=== PATIENT | male | born 1975 | race Two or more races ===

== ENCOUNTER 2018-06-21 19:09 | Emergency (ER) | payer OTHER ==
[~2018-06-21] VITALS: Ht 182.9 cm; Wt 90.7 kg
[2018-06-21 21:18] VITALS: BP 135/80
[2018-06-21] MEDS ORDERED: IBUPROFEN 800 MG TAB PO ONE (21:30)
== END 2018-06-21 21:33 ==
LOC: ER 19:09 → EEVIPCON 19:09 → ER 21:33
DX: S52.531A Colles' fracture of right radius, initial encounter for closed fracture (principal); W22.8XXA Striking against or struck by other objects, initial encounter; Y93.61 Activity, american tackle football; Y99.8 Other external cause status; Y92.89 Other specified places as the place of occurrence of the external cause
CPT/HCPCS: 29125; 73110; 73130